=== PATIENT | male | born 1985 | race Caucasian/White ===

== ENCOUNTER 2021-06-25 19:26 | Emergency (ER) | payer MEDICARE ==
[~2021-06-25] VITALS: Ht 167.6 cm; Wt 65.9 kg
[2021-06-25 23:10] VITALS: BP 129/81
== END 2021-06-25 23:31 | disposition home or self-care (01) ==
LOC: EMS 19:26
DX: F25.9 Schizoaffective disorder, unspecified (principal); F31.9 Bipolar disorder, unspecified; F17.210 Nicotine dependence, cigarettes, uncomplicated; Z76.0 Encounter for issue of repeat prescription
CPT/HCPCS: 99281; Z7502